=== PATIENT | male | born 1995 | race Caucasian/White ===

== ENCOUNTER → 2023-06-02 11:18 | Outpatient (REF) | payer OTHER, SELFPAY ==
[2023-06-04 11:40] LABS: Quantiferon Mitogen minus NIL 9.89 IU/mL; Quantiferon NIL 0.03 IU/mL; Quantiferon TB Gold Plus Negative (Negative)
== END ==
LOC: OHS 11:18
PROVIDERS: ATTENDING PHYSICIAN Nurse Practitioner Family
DX: Z23 Encounter for immunization (principal)
CPT/HCPCS: 36415; 86480